=== PATIENT | male | born 1995 | race African-American/Black ===

== ENCOUNTER 2020-07-10 08:48 | Emergency (ER) | payer OTHER, SELFPAY ==
[2020-07-10 08:56] VITALS: BP 146/80; PULSE 87; RESP 12; TEMP 36.6; O2SAT 100
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
== END 2020-07-10 09:35 | disposition home or self-care (01) ==
PROVIDERS: Emergency Provider Emergency Medicine
DX: M54.6 Pain in thoracic spine (principal); V43.52XD Car driver injured in collision with other type car in traffic accident, subsequent encounter
CPT/HCPCS: 99213; G0463

== ENCOUNTER → 2020-07-15 14:50 | Outpatient (CLI) | payer MEDICAID, SELFPAY ==
--- NOTE | ~2020-07-15 | XR_ITS ---
EXAMINATION: XR hand LT 2V DATE: 07/15/2020 15:18 INDICATION: Left hand injury. TECHNIQUE: 2 views of left hand were obtained. COMPARISON: None. FINDINGS: Bone alignment is normal. No fracture. Joint spaces are well maintained. IMPRESSION: 1. Normal left hand. Reviewed, dictated and finalized at location B. TRICAL TECHNICIAN INSTRUCTOR IMPRESSION: 1. Normal left hand.
--- NOTE | ~2020-07-15 | XR_ITS ---
EXAMINATION: XR thoracic spine 2V DATE: 07/15/2020 15:18 INDICATION: Dorsalgia, unspecified. TECHNIQUE: 3 views of the thoracic spine were obtained. COMPARISON: None. FINDINGS: There is 4 degrees dextrocurvature of thoracic spine. Vertebral body heights and interverte bral disc heights are normal. IMPRESSION: 1. No etiology for the patient's symptoms. Reviewed, dictated and finalized at location B. ECT ASSISTANT
== END ==
PROVIDERS: PCP Nurse Practitioner Family; Visit Provider Nurse Practitioner Family
DX: M54.9 Dorsalgia, unspecified (principal); S69.92XS Unspecified injury of left wrist, hand and finger(s), sequela; X58.XXXA Exposure to other specified factors, initial encounter
CPT/HCPCS: 72070; 73120

== ENCOUNTER 2023-10-20 09:21 | Emergency (ER) | payer OTHER, SELFPAY ==
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
[2023-10-20 09:32] VITALS: BP 129/76; PULSE 80; RESP 16; TEMP 36.7; O2SAT 100
== END 2023-10-20 10:32 | disposition home or self-care (01) ==
PROVIDERS: Emergency Provider Nurse Practitioner Family
DX: S59.811A Other specified injuries right forearm, initial encounter (principal); V49.40XA Driver injured in collision with unspecified motor vehicles in traffic accident, initial encounter; R07.89 Other chest pain
CPT/HCPCS: 71046; 73090; 99214; G0463

== ENCOUNTER 2024-01-02 01:49 | Day surgery (SDC) | payer BC, OTHER, SELFPAY ==
[2023-11-23 08:58] VITALS: BMI 21.5
--- NOTE | 2023-11-23 09:01 | PC.NURSE ---
Report to the Outpatient Waiting Room, entrance under the green pavilion located off [facility], at time 1000_ on date 12/05/23. Planned Procedure Time: _1200__. Time changes happen often and if your time is changed the preop area will call you the afternoon before. - You and your visitor will be asked to self-screen and do not enter if you have any COVID symptoms. - A mask is optional within the hospital at this time. Patients may have clear liquids (water, carbonated beverages, clear teas, apple juice) until 3 hours prior to surgery with a maximum of 20 ounces. - No food from midnight until time of surgery - Infants may have breast milk until 4 hours before surgery, formula 6 hours prior to surgery. - Children will be allowed to drink immediately following surgery. If applicable, please bring a bottle or sippy cup to assist with drinking. Juice, water, soda, and popsicles are readily available. For infants on formula, please bring formula the day of surgery. Pacifiers are allowed. Take the following medications with a SIP of water the morning of surgery: TRAMADOL/ FLEXERIL DO NOT STOP ANY OF YOUR OTHER PRESCRIPTION MEDICATIONS PRIOR TO SURGERY ?EXCEPT THE FOLLOWING Medications to discontinue per physician NONE Date to take last dose Please no make-up, nail comoran, hairspray, perfume, deodorant, or body powder the day of surgery. No jewelry (including any body piercings) or valuables the day of surgery, leave them at home. Please take a shower or bath the night before, or the morning of, surgery with HIBICLENS antibacterial soap. Wear comfortable, loose fitting clothing. Children are encouraged to wear pajamas. - Jewelry must be removed prior to entering the operating room. Rings and piercings that are not removed may be cut off. - The hospital will not accept responsibility for valuables. - Please leave all valuables, including medications, at home the day of surgery. If you are going home after surgery, a licensed day haul or farm charter bus driver must drive you home. - NO public transportation without another adult if you receive anesthesia. - We recommend that an adult stay with you for 24 hours following discharge. - We also recommend that you do not drive, make important decision, drink alcoholic beverages, or take any drugs that were not prescribed by your health care provider for at least 24 hours after your discharge time. For Pediatric surgeries, we recommend two adults accompany the child home. Follow any additional instructions given to you from your surgeon. If you or anyone in your household have experienced Covid symptoms in the past week, please notify your surgeon or the nurse liaison at the phone number below for possible testing. Telephone instructions given to PATIENT_and asked if any additional questions and then verbalized understanding. Patient advised to call surgeon office or pre surgery nurse liaison [phone] if any additional questions.
--- NOTE | 2023-12-24 15:44 | SUR.PREOP ---
Report to the Outpatient Waiting Room, entrance under the green pavilion located off [facility], at time 1000 on date 01/02/24. Planned Procedure Time: 1200. Time changes happen often and if your time is changed the preop area will call you the afternoon before. - You and your visitor will be asked to self-screen and do not enter if you have any COVID symptoms. - A mask is optional within the hospital at this time. Patients may have clear liquids (water, carbonated beverages, clear teas, apple juice) until 3 hours prior to surgery with a maximum of 20 ounces. - No food from midnight until time of surgery - Infants may have breast milk until 4 hours before surgery, infant formula 6 hours prior to surgery. - Children will be allowed to drink immediately following surgery. If applicable, please bring a bottle or sippy cup to assist with drinking. Juice, water, soda, and popsicles are readily available. For infants on formula, please bring formula the day of surgery. Pacifiers are allowed. Take the following medications with a SIP of water the morning of surgery: TRAMADOL & FLEXERIL DO NOT STOP ANY OF YOUR OTHER PRESCRIPTION MEDICATIONS PRIOR TO SURGERY ?EXCEPT THE FOLLOWING Medications to discontinue per physician N/A Date to take last dose Please no make-up, nail sinhala, hairspray, perfume, deodorant, or body powder the day of surgery. No jewelry (including any body piercings) or valuables the day of surgery, leave them at home. Please take a shower or bath the night before, or the morning of, surgery with an antibacterial soap. Wear comfortable, loose fitting clothing. Children are encouraged to wear pajamas. - Jewelry must be removed prior to entering the operating room. Rings and piercings that are not removed may be cut off. - The hospital will not accept responsibility for valuables. - Please leave all valuables, including medications, at home the day of surgery. If you are going home after surgery, a licensed pile driver operator helper must drive you home. - NO public transportation without another adult if you receive anesthesia. - We recommend that an adult stay with you for 24 hours following discharge. - We also recommend that you do not drive, make important decision, drink alcoholic beverages, or take any drugs that were not prescribed by your health care provider for at least 24 hours after your discharge time. For Pediatric surgeries, we recommend two adults accompany the child home. Follow any additional instructions given to you from your surgeon. If you or anyone in your household have experienced Covid symptoms in the past week, please notify your surgeon or the nurse liaison at the phone number below for possible testing. Telephone instructions given to GREGORY DIANA and asked if any additional questions and then verbalized understanding. Patient advised to call surgeon office or pre surgery nurse liaison [phone] if any additional questions.
--- NOTE | 2024-01-02 10:42 | PM.IMHP ---
H&P: HPI History of Present Illness Date/Time: 01/02/24 10:42 Chief Complaint: Chino is a 27 y/o male who presents to the office at the request of Dr. Dixon for evaluation of a LUE skin cyst. Patient states he first noticed this several months ago. Reports a gradual increase in size. States the cyst is occasionally painful and will have purulent discharge. Denies any redness or warmth to the area. Review of Systems Review of Systems: All systems reviewed & are unremarkable except as noted in HPI and below PMFSH Social History Social History Smoking status: Never smoker Alcohol intake: never Substance use: never Do You Feel Safe in your Home?: Yes Lack of Transportation: YES Lack of Food: Never True Current Housing: Decline to Answer Concerned About Future Housing: Decline to Answer Difficulty Paying Gas/Electric Bills: Decline to Answer Difficulty Paying for Meds: Decline to Answer Currently Unemployed: Decline to Answer Education: High School Diploma/GED Difficulty w/ Childcare or Family Care: Decline to Answer Living arrangements: other Meds Home Medications and Allergies Home Medications Medication Instructions Recorded Confirmed Type cyclobenzaprine 10 mg tablet 10 mg PO PRN PRN MUSCLE SPASMS 11/23/23 11/23/23 History tramadol 50 mg tablet 50 mg PO PRN PRN Pain 11/23/23 11/23/23 History Allergies Allergy/AdvReac Type Severity Reaction Status Date / Time No Known Allergies Allergy Verified 11/23/23 08:54 Exam Const: General: cooperative, comfortable and no acute distress Resp: Auscultation: clear to auscultation bilaterally Cardio: Rate: regular rate Rhythm: regular rhythm GI: Inspection: normal to inspection Skin: Other: 1.5 x 1 cm L forearm cystic mass 1 x 1 cm L post shoulder mass Assessment and Plan Assessment and plan (1) Mass of skin of left shoulder: Code(s): R22.32 - Localized swelling, mass and lump, left upper limb Status: Acute Assessment and Plan: will setup for exc bx (2) Mass of left forearm: Code(s): R22.32 - Localized swelling, mass and lump, left upper limb Status: Acute Assessment and Plan: will setup for exc bx
--- NOTE | 2024-01-02 10:54 | WPDANESEPPF ---
Anes - Initial Pre Proc Eval Procedure: Operation Date: 01/02/24 12:00 Proposed Procedures p Excisional Biopsy of Left Forearm Cystic Mass and Left Posterior Shoulder Cystic Mass - Yaz Sanches MD Date/Time: 01/02/24 10:54 Surgeon: Yaz Sanches MD Pre Op Diagnosis: left forearm cyst, left posterior shoulder cyst Patient Data Age: 28 Gender: M Height: 1.8 m Weight: 70 kg Allergies Allergy/AdvReac Type Severity Reaction Status Date / Time No Known Allergies Allergy Verified 11/23/23 08:54 Home Medications Medication Instructions Recorded Confirmed Type cyclobenzaprine 10 mg tablet 10 mg PO PRN PRN MUSCLE SPASMS 11/23/23 11/23/23 History tramadol 50 mg tablet 50 mg PO PRN PRN Pain 11/23/23 11/23/23 History Patient hx anesthesia problems: none Family hx anesthesia problems: none Results Review: All pre-operative results and documents have been reviewed as part of the pre-operative evaluation. [facility] Social History Social History Smoking status: Never smoker Alcohol intake: never Substance use: never Do You Feel Safe in your Home?: Yes Lack of Transportation: YES Lack of Food: Never True Current Housing: Decline to Answer Concerned About Future Housing: Decline to Answer Difficulty Paying Gas/Electric Bills: Decline to Answer Difficulty Paying for Meds: Decline to Answer Currently Unemployed: Decline to Answer Education: High School Diploma/GED Difficulty w/ Childcare or Family Care: Decline to Answer Living arrangements: other Anes - Eval Final PreProcedure Day of Procedure 01/02/24 10:54 Patient weight: normal Heart: regular rate and rhythm Lungs: clear to auscultation Airway: Mallampati scale class 1 Neurological: alert and oriented Last oral intake: >/= 8 hours ASA classification: I Emergent: no Anesthetic plan: proceed Anesthesia type and monitoring: general GIVS and standard monitoring Results Review: All pre-operative results and documents have been reviewed as part of the pre-operative evaluation. Informed Consent: The patient's anesthetic plan and its attendant risks and benefits were discussed with the patient/family/POA. Questions were solicited and answers provided to the satisfaction of the patient/family/POA.
--- NOTE | 2024-01-02 10:56 | WPDHPUPDATE1 ---
History and Physical Update Update Date/Time: 01/02/24 10:56 History and Physical has been reviewed, including an updated exam of the patient. There are NO changes in the patient's condition. Risks, benefits, and alternatives have been discussed and questions answered. Patient agrees to proceed with procedure.
[2024-01-02 11:01] VITALS: BP 115/74; PULSE 73; RESP 16; TEMP 36.8; O2SAT 100
[2024-01-02] MEDS: LACTATED RINGERS 1,000 ML 30 ML IV CONT (11:20)
--- NOTE | 2024-01-02 11:34 | WPDHPUPDATE1 ---
History and Physical Update Update Date/Time: 01/02/24 11:34 History and Physical has been reviewed, including an updated exam of the patient. There are NO changes in the patient's condition. Risks, benefits, and alternatives have been discussed and questions answered. Patient agrees to proceed with procedure.
[2024-01-02] MEDS: ceFAZolin 2 GM/D5W 50 ML 2 GM/50 ML BAG IVPB (11:54)
[2024-01-02] MEDS: BUPIVACAINE/EPINEPHRINE 0.5% 10 ML VIAL INFILTRATE (12:13)
[2024-01-02 12:33] VITALS: BP 124/78; PULSE 87; RESP 20; O2SAT 100
--- NOTE | 2024-01-02 12:41 | W.PM.PROC2 ---
Procedure Note - Detailed Date of Procedure 01/02/24 Pre-op Diagnosis left forearm cyst, left posterior shoulder cyst Post-op Diagnosis Same Procedure Performed Excisional biopsy left forearm cystic mass measuring 1.5 x 1 cm, excisional biopsy left posterior shoulder cystic mass measuring 1 x 1 Surgeon Yaz Sanches MD Anesthesia MAC and Local Indications 28-year-old male presenting to the office with left forearm cystic mass and left posterior shoulder cystic mass. He reports it been growing in size are symptomatic Findings cystic mass in subcutaneous tissue as described above Description of Procedure The patient was taken the operating room placed in the lateral position. After adequate induction of MAC anesthesia, the patient was prepped and draped in the normal sterile fashion. A time-out was then done to verify the patient's identity, as well as the procedure being performed. I began by localizing the areas in and around the cystic masses. I began by making an elliptical incision over the larger mass in the left forearm. This was taken down through the dermis into the subcutaneous tissue. A well-circumscribed cystic mass was encountered. I was able to sharply dissect around this mass and excise it in full. It will be sent to pathology for further review and measured approximately 1.5 x 1 cm. I then gained hemostasis with the Bovie cautery. The subcutaneous tissue was closed with 3-0 Vicryl suture. The skin was closed with 4-0 Monocryl subcuticular suture. I then made an elliptical incision around the mass in the left posterior shoulder. Again this was carried through the dermis into the subcutaneous tissue. A well-circumscribed cystic mass was located within the subcutaneous tissue. Using sharp dissection, I was able to completely dissect and excise the mass. It will be sent to pathology for further review. Hemostasis was again gained with the Bovie cautery. The subcutaneous tissue was closed with 3-0 Vicryl suture. The skin was closed with 4-0 Monocryl subcuticular suture. Dermabond was placed on both wounds. The patient tolerated the procedure well and was alert and awake in the operating room postoperatively. He will be sent to the recovery room in stable condition. Estimated Blood Loss 5 Drains No Packing No Pathology Yes Complications No immediate complications Condition Stable Disposition PACU [facility] Billing Surgery - Charge Forward: Surgery Billing
[2024-01-02 13:00] VITALS: BP 139/95; PULSE 72; RESP 20
[2024-01-02 13:20] VITALS: BP 130/91; PULSE 70
== END 2024-01-02 13:27 | disposition home or self-care (01) ==
PROVIDERS: PCP Emergency Medicine; Visit Provider Surgery
PROC: (CPT 11402; principal; 2024-01-02 12:00)
DX: L72.0 Epidermal cyst (principal)
CPT/HCPCS: 11402; 11401; 12031; 88304; J0690; J2250; J2270; J2704; J7120